=== PATIENT | male | born 1955 | race Caucasian/White ===

== ENCOUNTER → 2020-04-25 | Outpatient (CLI) | payer MEDICARE ==
[~2020-04-25] MED LIST: ASPI81CH; Amrix15 MG; BENAML20/5 PO; CLON2 PO; Cialis5 MG; HYDACE5325 PO; OXYACE5T PO; Percocet 5-3251 EACH PO; ZOLP12.5 PO
== END ==
LOC: LAB SHORT 14:44 → PLD 14:44
DX: D17.0 Benign lipomatous neoplasm of skin and subcutaneous tissue of head, face and neck (principal)
CPT/HCPCS: 88305

== ENCOUNTER 2021-03-10 06:56 | Day surgery (SDC) | payer MEDICARE, BC ==
[~2021-03-10] VITALS: Ht 170 cm; Wt 78.8 kg
[~2021-03-10 06:56] MED LIST changes: +Amitriptyline H10 MG PO; +DICL75ER PO
--- NOTE | 2021-03-10 08:01 | NUR ---
Ambulatory in Day Surgery History, Chart, Medications and Allergies reviewed before start of procedure.Patient confirms NPO status and agrees with scheduled surgery. Lungs clear T/O to Auscultation.Patient states colon prep results clear.
--- NOTE | 2021-03-10 08:09 | NUR ---
03/10/21 0809 Niki Siegel History, Chart, Medications and Allergies reviewed before start of procedure. Patient confirms NPO status and agrees with scheduled surgery. 3-LEAD EKG REVIEWED WITH PHYSICIAN PRIOR TO START OF PROCEDURE. MONITOR INTACT WITH CONTINUOUS PULSE OXIMETRY AND INTERMITTENT BP. PATIENT DETERMINED TO BE ASA APPROPRIATE FOR PROPOFOL SEDATION PRIOR TO START OF PROCEDURE BY .
--- NOTE | 2021-03-10 09:02 | NUR ---
Patient up to Ambulate independently. Gait steady. Discharge instructions reviewed with patient. Patient verbalizes understanding. Copy given to patient to take home. Discharged via wheelchair to private car for ride home.
== END 2021-03-10 22:48 | disposition home or self-care (01) ==
LOC: ORSCMMR 06:56 → ORD 08:00 → ORSCMMR 08:00 → ORSCSDS 08:00 → ORSCMMR 22:48
PROVIDERS: Surgery
PROC: 0DJD8ZZ Inspection of Lower Intestinal Tract, Via Natural or Artificial Opening Endoscopic (ICD-10-PCS; principal; 2021-03-10 08:00)
DX: Z12.11 Encounter for screening for malignant neoplasm of colon (principal); Z86.010 Personal history of colon polyps; K57.30 Diverticulosis of large intestine without perforation or abscess without bleeding; K64.8 Other hemorrhoids; I10 Essential (primary) hypertension; F41.8 Other specified anxiety disorders; G47.33 Obstructive sleep apnea (adult) (pediatric); F51.9 Sleep disorder not due to a substance or known physiological condition, unspecified; Z79.899 Other long term (current) drug therapy
CPT/HCPCS: J2704; J7120